=== PATIENT | male | born 1970 | race Caucasian/White ===

== ENCOUNTER 2020-05-12 07:03 | Outpatient (NON) | payer OTHER, SELFPAY ==
[2020-05-12 17:37] LABS: SARS-CoV-2 RNA PCR Negative
== END 2020-05-12 07:04 ==
PROVIDERS: PCP Student in an Organized Health Care Education/Training Program; Visit Provider Student in an Organized Health Care Education/Training Program
DX: Z20.828 Contact with and (suspected) exposure to other viral communicable diseases (principal)
CPT/HCPCS: 87635; C9803; U0003

== ENCOUNTER 2020-05-24 15:15 | Emergency (ER) | payer OTHER, SELFPAY ==
--- NOTE | ~2020-05-24 | XR_ITS ---
XR finger 3rd RT min 2V 05/24/2020 15:36 Indication: Right third finger injury. Unable to straighten distal phalanx. Procedure: 4 views right third finger Comparison: No prior studies for comparison. Findings: There is fixed flexion at the third distal interphalangeal joint, likely resulting from inj ury to the extensor mechanism (i.e. mallet finger). No acute fracture is identified. No subluxation. No significant soft tissue abnormality. No radiopaque foreign bodies. Impression: 1: Fixed flexion at the third distal interphalangeal joint, likely resulting from injury to the exten sor mechanism (i.e. mallet finger). Reviewed, dictated and finalized at location A. Impression: 1: Fixed flexion at the third distal interphalangeal joint, likely resulting fr om injury to the extensor mechanism (i.e. mallet finger).
[2020-05-24 15:21] VITALS: BP 138/83; PULSE 88; RESP 16; TEMP 36.8; O2SAT 98
--- NOTE | 2020-05-24 15:31 | ED.UPPEXIN ---
HPI - Extremity Injury (Upper) General Chief Complaint: Extremity Injury, Upper Stated Complaint: INJURED FINGER Source: patient Mode of arrival: ambulatory Limitations: no limitations History of Present Illness HPI narrative: 49-year-old male presents to [facility] with complaints of deformity to his right third finger for the past 30 minutes. Patient reports that he was pulling up his pants when his right third finger became stuck in his pocket. Patient reports that the dorsal aspect of his right third finger remains in flexed position. Patient reports intermittent tingling. Patient has not tried taking any [id number]-[id number] medications for his symptoms. Patient denies swelling, bruising, erythema or numbness. MD complaint: injury to: right and finger (right 3rd ) Onset (ago): minute(s) (30) Other Extremity Injury: Right: fingers Place: home Exacerbating factors: none Associated symptoms: denies other symptoms Related Data Home Medications Medication Instructions Recorded Confirmed cetirizine [Zyrtec] 10 mg PO DAILY 05/24/20 05/24/20 Allergies Allergy/AdvReac Type Severity Reaction Status Date / Time Penicillins Allergy Mild Hives Verified 05/24/20 15:24 Review of Systems Constitutional: Constitutional: Denies chills, Denies fatigue, Denies fever(s) and Denies weakness Cardiovascular: Cardiovascular: Denies chest pain, Denies rapid heart rate and Denies slow heart rate Respiratory: Respiratory: Denies cough, Denies dyspnea and Denies wheezing Gastrointestinal: Gastrointestinal: Denies diarrhea, Denies nausea and Denies vomiting Musculoskeletal: Comments: Deformity to right third finger Integumentary/Breasts: Skin/Breast: Denies rash Neurologic: Denies vertigo, Denies dizziness and Denies syncope PMFSH Past Medical History Medical History (Updated 05/24/20 @ 15:43 by Claudine Carbone APRN) Hernia Seasonal allergies Social History Social History (Updated 05/24/20 @ 15:38 by Claudine Carbone APRN) Smoking status: Never smoker Comments At time of signature, I agree with nursing past medical, surgical, social and family history. There is no relevant family history pertinent to the presenting complaint. Exam Const: General: no acute distress and alert Nutritional Appearance: well nourished Orientation/consciousness: patient oriented x3 Neck: Neck: normal visual inspection Resp: Effort & Inspection: normal respiratory effort, not labored and not tachypneic Auscultation: clear to auscultation bilaterally Cardio: Rate: regular rate, not bradycardic and not tachycardic Rhythm: regular rhythm Skin: General skin exam: normal color, no jaundice and no pallor Rashes: no rashes Wounds: no wounds Neuro: General: patient oriented x3, moves all extremities and no meningeal signs Extrem: General: no clubbing, cyanosis or edema, no pedal edema and no edema Other: Deformity noted to distal phalanx of right third finger --DIP joint remains in flexed position. There is no swelling, erythema or bruising noted. Remainder of finger is normal and full range of motion is intact. Pulses are within normal limits. Psych: Appearance: grossly normal Mental Status: mental status grossly normal Affect: normal affect Attitude: cooperative Thought content: Yes Normal thought content present Course Vital Signs Vital signs: Vital Signs Temperature 36.8 C 05/24/20 15:21 Pulse Rate 88 05/24/20 15:21 Respiratory Rate 16 05/24/20 15:21 Blood Pressure 138/83 05/24/20 15:21 Pulse Oximetry 98 05/24/20 15:21 Temperature 36.8 C 05/24/20 15:21 Pulse Rate 88 05/24/20 15:21 Respiratory Rate 16 05/24/20 15:21 Blood Pressure 138/83 05/24/20 15:21 Pulse Oximetry 98 05/24/20 15:21 MDM - Extremity Injury (Upper) MDM Narrative Medical decision making narrative: Due to symptoms, patient will be referred to orthopedics. Patient reports that he is established with a local orthopedic ph
== END 2020-05-24 15:58 | disposition home or self-care (01) ==
PROVIDERS: Emergency Provider Nurse Practitioner Family; PCP Student in an Organized Health Care Education/Training Program
DX: M20.011 Mallet finger of right finger(s) (principal)
CPT/HCPCS: 29130; 73140; 99213; G0463